=== PATIENT | female | born 1960 | race Caucasian/White ===

== ENCOUNTER 2024-10-10 04:24 | Emergency (ER) | payer SELFPAY ==
[2024-10-10] VITALS (22 sets, daily range): BP systolic 104–212; BP diastolic 58–94; PULSE 55–81; RESP 15–24; TEMP 36.6–36.8; O2SAT 95–100
--- NOTE | ~2024-10-10 | CT_ITS ---
Clinical Indication: Back pain, elevated d-dimer CT Scan of the Chest with Contrast: Technique: Contiguous sections were acquired throughout the chest after intravenous administration of 100 cc of Omnipaque 350. Dose reduction technique was used on this scan by utilizing automated expos ure control and iterative reconstruction technique. The dose-length product (DLP) was 142.28 mGy-cm. Findings: There is no evidence of any significant mediastinal, hilar or axillary lymphadenopathy. There is no f illing defect in the pulmonary arterial tree to suggest pulmonary embolus. Ascending aorta measures 4 .2 cm in diameter. There is no evidence of pleural or pericardial effusion. There is mild emphysema with biapical scarring. Images through the upper abdomen reveal no abnormalities. Impression: No pulmonary embolus. Ascending aorta measures 4.2 cm in diameter. Mild emphysema with biapical scarring. Reviewed, dictated and finalized at [facility]. Impression: No pulmonary embolus. Ascending aorta measures 4.2 cm in diameter. Mild emphysema with biapical scarring.
--- NOTE | ~2024-10-10 | XR_ITS ---
Portable chest x-ray Comparison: None Clinical History: Chest pain Findings: Lungs are clear, without focal consolidation or pleural effusion. Cardiomediastinal silho uette is unremarkable. Bones and soft tissues are unremarkable. Impression: Clear lungs. Reviewed, dictated and finalized at location [facility]. Impression: Clear lungs.
--- NOTE | 2024-10-10 04:27 | ECG_ITS ---
Test Date: 2024-10-10 04:32:54 Measurements Intervals [place] Rate: 56 P: 68 ND: 144 QRS: 15 QRSD: 95 T: 58 QT: 396 QTc: 385 Interpretive Statements SINUS BRADYCARDIA WITH SINUS ARRHYTHMIA POSSIBLE LEFT ATRIAL ENLARGEMENT [-0.1mV P-WAVE IN V1/V2] INCOMPLETE RIGHT BUNDLE BRANCH BLOCK [90+ ms QRS DURATION, TERMINAL R IN V1/V2, 40+ ms S IN I/aVL/V4/V5/V6] BORDERLINE ECG No previous ECG available for comparison Electronically Signed On 10-11-2024 07:58:14 CDT by Paco Anderson M.D.
--- OUTSIDE RECORDS SUMMARY | 2024-10-10 04:27 | XMS_ITS | Clinical Summary ---
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 Gender Identity Not on file Sexual Orientation Not on file Plan of Treatment Health Maintenance Due Date Last Done Comments Cervical Cancer Screening Pa p Smear (Age 30 to 64) Every 3 Years 1961 Colorectal Cancer Screening Colonoscopy (10 Years) 1961 Annual Physical 1964 Hepatitis C 11/21/1979 DTaP, Tdap and Td Vaccines ( 1 - Tdap) 1980 Cervical Cancer Screening Pa p with HPV Testing (Age 30 to 64) Every 5 Years 11/21/1991 Cervical Cancer Screening with HPV 11/21/1991 Mammogram Screening 2001 Pneumococcal Vaccine: 50+ Ye ars (1 of 1 - PCV) 11/21/2011 Zoster Vaccines (1 of 2) 11/21/2011 COVID-19 Vaccine (2023-2 5 season) 2023 RSV Immunization or 60+ Years (1 - 1-dose 75+ series) 2036 Meningococcal B Vaccine Aged Out No l onger eligible based on patient's age to complete this topic Meningococcal Vaccine Aged Out No samy lisa eligible based on patient's age to complete this topic RSV Immunizations Under 20 Months Aged Out No longer eligible based on patient's age to complete this topic
[2024-10-10] MEDS: ASPIRIN 81 MG CHEWABLE TABLET 324 MG PO (04:54)
[2024-10-10 04:55] LABS: Hematocrit 40.2 % (35.0-49.0); Hemoglobin 13.6 g/dL (12.0-15.0); Immature Granulocyte Percent A 0.4 % (0.0-0.0); Lymphocytes Absolute Auto 1.18 K/mm3 (1.10-4.50); Mean Corpuscular HGB Conc 33.8 g/dL (32-36); Mean Corpuscular Hemoglobin 33.7 pg (27.0-31.0); Mean Corpuscular Volume 99.8 fL (78.0-102.0); Nucleated Red Blood Cells Absolute Auto 0.00 K/mm3 (0.00-0.00); Nucleated Red Blood Cells Perc 0.0 % (0-0.0); Platelet Count Result 252 K/mm3 (150-420); Red Blood Count 4.03 M/mm3 (4.20-5.40); White Blood Count 5.3 K/mm3 (4.8-10.8)
[2024-10-10] MEDS: SODIUM CHLORIDE 0.9% IV 1,000 ML 999 ML IV CONT ×2 (04:55→06:02)
--- OUTSIDE RECORDS SUMMARY | 2024-10-10 05:04 | XMS_ITS | Clinical Summary ---
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
[2024-10-10 05:07] LABS: Alanine Aminotransferase 14 U/L (6-35); Albumin Level 4.1 g/dL (3.5-5.1); Alkaline Phosphatase 113 U/L (38-126); Anion Gap 5 mmol/L (4-12); Aspartate Amino Transferase 24 U/L (14-36); Bilirubin,Total 0.4 mg/dL (0.2-1.3); Blood Urea Nitrogen 14 mg/dL (7-17); Calcium 8.5 mg/dL (8.4-10.2); Carbon Dioxide 23 mmol/L (22-30); Chloride 109 mmol/L (98-107); Estimated CRCL calculation 46 ml/min; Estimated Glomerular Filt Rate > 60; Glucose 92 mg/dL (65-110); Lipase 108 U/L (23-300); Osmolality Calculated 284 mOsm/kg (285-295); Sodium 137 mmol/L (137-145); Total Protein 6.9 g/dL (6.3-8.2)
[2024-10-10 05:09] LABS: INR 0.9; Partial Thromboplastin Time 23.6 Sec (23.9-30.70); Prothrombin Time 10.4 Seconds (9.50-12.1)
[2024-10-10 05:18] LABS: NT Pro B Type Natriuretic Pept 144 pg/mL (19.9-100); Potassium 2.8 mmol/L (3.4-5.0); Troponin I < 0.012 ng/mL (0.000-0.034)
[2024-10-10 05:24] LABS: Add Urine Microscopic? NO; Appearance Urine Clear (Clear); Glucose Urine UA Negative (Negative); Leukocyte Esterase Ur Negative LEU/UL (Negative); Nitrate Urine Negative (Negative); Specific Grav Ur <= 1.005 (1.010-1.020)
[2024-10-10] MEDS: POTASSIUM BICARBONATE 25 MEQ TABEF 50 MEQ PO ×2 (05:33→07:54)
--- NOTE | 2024-10-10 05:53 | ED.CHESTPAIN ---
HPI - Chest Pain General Chief Complaint: Chest Pain <Paco Arizmendi MD - Last Filed: 10/10/24 05:59> Stated Complaint: tingling all over <Paco Arizmendi MD - Last Filed: 10/10/24 05:59> Time Seen by Provider: 10/10/24 04:33 <Paco Arizmendi MD - Last Filed: 10/10/24 05:59> Source: patient <Paco Arizmendi MD - Last Filed: 10/10/24 05:59> Mode of arrival: ambulatory <Paco Arizmendi MD - Last Filed: 10/10/24 05:59> Limitations: no limitations <Paco Arizmendi MD - Last Filed: 10/10/24 05:59> History of Present Illness HPI narrative: this is a 63-year-old female with no significant past medical history presents after she woke up this morning around 3:00 a.m. with chest heaviness with no dyspnea no shortness of breath mild nausea with no vomiting no fever chills no chest congestion no abdominal pain no flank pain no dysuria or hematuria no diarrhea constipation. Rates her pain 4/10 with no radiation of her pain <Paco Arizmendi MD - Last Filed: 10/10/24 05:59> MD complaint: chest heaviness <Paco Arizmendi MD - Last Filed: 10/10/24 05:59> Onset (ago): hour(s) <Paco Arizmendi MD - Last Filed: 10/10/24 05:59> Timing of current episode: constant <Paco Arizmendi MD - Last Filed: 10/10/24 05:59> Prior episodes: No <Paco Arizmendi MD - Last Filed: 10/10/24 05:59> Onset: during rest <Paco Arizmendi MD - Last Filed: 10/10/24 05:59> Pain location: substernal <Paco Arizmendi MD - Last Filed: 10/10/24 05:59> Pain radiation: none <Paco Arizmendi MD - Last Filed: 10/10/24 05:59> Severity: mild <Paco Arizmendi MD - Last Filed: 10/10/24 05:59> Related Data Allergies/Adverse Reactions: Allergies Allergy/AdvReac Type Severity Reaction Status Date / Time No Known Allergies Allergy Mild Unverified 01/16/05 11:42 <Paco Arizmendi MD - Last Filed: 10/10/24 05:59> Review of Systems Review of Systems: All systems reviewed & are unremarkable except as noted in HPI and below <Paco Arizmendi MD - Last Filed: 10/10/24 05:59> Exam Const: General: cooperative, healthy appearing, comfortable, no acute distress and well developed <Paco Arizmendi MD - Last Filed: 10/10/24 05:59> Chest: Chest palpation & inspection: normal inspection of the chest and normal palpation of entire chest wall <Paco Arizmendi MD - Last Filed: 10/10/24 05:59> Resp: Effort & Inspection: normal respiratory effort and able to speak in complete sentences <Paco Arizmendi MD - Last Filed: 10/10/24 05:59> Auscultation: clear to auscultation bilaterally <Paco Arizmendi MD - Last Filed: 10/10/24 05:59> Cardio: Jugular venous distension: no JVD <Paco Arizmendi MD - Last Filed: 10/10/24 05:59> Palpation: normal PMI <Paco Arizmendi MD - Last Filed: 10/10/24 05:59> Rate: regular rate <Paco Arizmendi MD - Last Filed: 10/10/24 05:59> Rhythm: regular rhythm <Paco Arizmendi MD - Last Filed: 10/10/24 05:59> Heart sounds: S1 normal heart sound present and S2 normal heart sound present <Paco Arizmendi MD - Last Filed: 10/10/24 05:59> : General: Yes bimanual renal exam normal bilaterally <Paco Arizmendi MD - Last Filed: 10/10/24 05:59> Urinary Catheter: Urinary Catheter: patent and draining <Paco Arizmendi MD - Last Filed: 10/10/24 05:59> Back/Spine/Pelvis: Back: no CVA tenderness <Paco Arizmendi MD - Last Filed: 10/10/24 05:59> Skin: General skin exam: normal color and no rashes or lesions noted <Paco Arizmendi MD - Last Filed: 10/10/24 05:59> Neuro: General: oriented to person, oriented to place, oriented to time and patient oriented x3 <Paco Arizmendi MD - Last Filed: 10/10/24 05:59> Extrem: General: normal to inspection, full ROM and capillary refill normal <Paco Arizmendi MD - Last Filed: 10/10/24 05:59> Psych: Appearance: grossly normal <Paco Arizmendi MD - Last Filed: 10/10/24 05:59> Course Vital Signs Vital signs: Vital Signs Temperature 36.6 C 10/10/24 04:25 Pulse Rate 75 10/10/24 04:25 Respiratory Rate 24 H 10/10/24 04:25 Blood Pressure 156/90 H 10/10/24 04:25 Pulse Oximetry 97 10/10/24 04:25 Oxygen Delivery Room Air 10/10/24 04:25 Temperature 36.6 C 10/10/24 07:15 Pulse Rate 58 L 10/10/24 08:01 Respiratory Rate 17 10/10/24 08:01 Blood Pressure 104/90 10/10/24 08:01 Pulse Oximetry 99 10/10/24 08:01 Oxygen Delivery Room Air 10/10/24 06:28 <Paco Arizmendi MD - Last Filed: 10/10/24 05:59> Vital Signs Temperature 36.6 C 10/10/24 04:25 Pulse Rate 75 10/10/24 04:25 Respiratory Rate 24 H 10/10/24 04:25 Blood Pressure 156/90 H 10/10/24 04:25 Pulse Oximetry 97 10/10/24 04:25 Oxygen Delivery Room Air 10/10/24 04:25 Temperature 36.6 C 10/10/24 07:15 Pulse Rate 58 L 10/10/24 08:01 Respiratory Rate 17 10/10/24 08:01 Blood Pressure 104/90 10/10/24 08:01 Pulse Oximetry 99 10/10/24 08:01 Oxygen Delivery Room Air 10/10/24 06:28 <Pavel Roberts MD - Last Filed: 10/10/24 08:33> MDM - Chest Pain MDM Narrative Medical decision making narrative: Patient was placed in Room #2 History and physical was performed. received patient from Dr. Dr. Paco Arizmendi potassium 2.8 to her pending 2nd troponin 1st [address] a chest showed a 4.2 cm aneurysm no pulmonary embolism. Patient is receiving a K rider in and has received 50 mEq of potassium p.o. and 3 and 25 mg aspirin. magnesium 1.6 low normal, will give Mag-Ox 400 mg Second troponin is normal patient only she woke up 3:00 a.m. with pain between her shoulder blades in the back tingling all over was little nausea without any diaphoresis or vomiting. Denies any chest pain or difficulty breathing. Independent Historian: Patient External Source Review: Differential Dx includes but not limited to: acute coronary syndrome pneumonia pulmonary embolism aortic dissection uric aneurysm Medications were Reviewed: no home meds Independently Interpreted by me: labs independently interpreted by me. Meds, treatment, ED course: potassium p.o. 500 mEq x2, K rider Mag-Ox 400. Social Situation Impacting Patients Care: Shared decision Making: evaluation was discussed all questions were asked and answered patient agreed with the plan. She would follow up with her primary care provider tomorrow she already has an appointment scheduled for 4:00 p.m. she needs follow-up for her potassium and also to follow her for her 4.2 cm aortic aneurysm Discussed with Dr. Paco Arizmendi At change of shift DISCHARGE DIAGNOSIS: Back pain, 4.2 cm aortic aneurysm, hypokalemia DISPOSITION: Discharge home CONDITION AT DISCHARGE: stable <Pavel Roberts MD - Last Filed: 10/10/24 08:33> Lab Data Result diagrams: 10/10/24 04:55 10/10/24 04:55 <Paco Arizmendi MD - Last Filed: 10/10/24 05:59> Labs: Lab Results 10/10/24 10/10/24 10/10/24 Range/Units 04:46 04:46 04:55 WBC 5.3 (4.8-10.8) K/mm3 RBC 4.03 L (4.20-5.40) M/mm3 Hgb 13.6 (12.0-15.0) g/dL Hct 40.2 (35.0-49.0) % MCV 99.8 (78.0-102.0) fL MCH 33.7 H (27.0-31.0) pg MCHC 33.8 (32-36) g/dL RDW 14.3 (11.6-14.4) % Plt Count 252 (150-420) K/mm3 MPV 9.8 (9.2-11.8) fl Immature Gran % (Auto) 0.4 H (0.0-0.0) % Neut % (Auto) 69.3 (50.0-70.0) % Lymph % (Auto) 22.2 (18.0-42.0) % [place] % (Auto) 4.9 (2.0-11.0) % Eos % (Auto) 2.8 (1.0-6.0) % Baso % (Auto) 0.4 (0.0-1.0) % Lymph # (Auto) 1.18 (1.10-4.50) K/mm3 [place] # (Auto) 0.26 (0.10-0.90) K/mm3 Eos # (Auto) 0.15 (0.02-0.50) K/mm3 Baso # (Auto) 0.02 (0.00-0.10) K/mm3 Abs Immat Gran (auto) 0.02 H (0.00-0.00) K/mm3 Absolute Neuts (auto) 3.69 (1.70-7.20) K/mm3 Absolute Nucleated RBC 0.00 (0.00-0.00) K/mm3 Nucleated RBC % 0.0 (0-0.0) % PT 10.4 (9.50-12.1) Seconds INR 0.9 APTT 23.6 L (23.9-30.70) Sec D-Dimer 0.90 H (0.19-0.50) mg/L Sodium 137 (137-145) mmol/L Potassium 2.8 L* (3.4-5.0) mmol/L Chloride 109 H (98-107) mmol/L Carbon Dioxide 23 (22-30) mmol/L Anion Gap 5 (4-12) mmol/L BUN 14 (7-17) mg/dL Creatinine 0.93 (0.7-1.0) mg/dL Estim Creat Clear Calc 46 ml/min Estimated GFR > 60 (59 - ) Glucose 92 (65-110) mg/dL Calculated Osmolality 284 L (285-295) mOsm/kg Calcium 8.5 (8.4-10.2) mg/dL Magnesium Cancelled 1.6 Total Bilirubin 0.4 (0.2-1.3) mg/dL AST 24 (14-36) U/L ALT 14 (6-35) U/L Alkaline Phosphatase 113 (38-126) U/L Troponin I < 0.012 (0.000-0.034) ng/mL NT-Pro-B Natriuret Pep 144 H (19.9-100) pg/mL Total Protein 6.9 (6.3-8.2) g/dL Albumin 4.1 (3.5-5.1) g/dL Lipase 108 (23-300) U/L Urine Color (Yellow) Urine Appearance (Clear) Urine pH (5.0-8.0) Ur Specific [place] (1.010-1.020) Urine Protein (Negative) Urine Glucose (UA) (Negative) Urine Ketones (Negative) Ur Blood (Man) (Negative) Urine Nitrate (Negative) Urine Bilirubin (Negative) Urine Urobilinogen (0.2-1.0) mg/dL Leukocyte Esterase Rfl (Negative) [place]/UL 10/10/24 10/10/24 Range/Units 05:21 07:42 WBC (4.8-10.8) K/mm3 RBC (4.20-5.40) M/mm3 Hgb (12.0-15.0) g/dL Hct (35.0-49.0) % MCV (78.0-102.0) fL MCH (27.0-31.0) pg MCHC (32-36) g/dL RDW (11.6-14.4) % Plt Count (150-420) K/mm3 MPV (9.2-11.8) fl Immature Gran % (Auto) (0.0-0.0) % Neut % (Auto) (50.0-70.0) % Lymph % (Auto) (18.0-42.0) % [place] % (Auto) (2.0-11.0) % Eos % (Auto) (1.0-6.0) % Baso % (Auto) (0.0-1.0) % Lymph # (Auto) (1.10-4.50) K/mm3 [place] # (Auto) (0.10-0.90) K/mm3 Eos # (Auto) (0.02-0.50) K/mm3 Baso # (Auto) (0.00-0.10) K/mm3 Abs Immat Gran (auto) (0.00-0.00) K/mm3 Absolute Neuts (auto) (1.70-7.20) K/mm3 Absolute Nucleated RBC (0.00-0.00) K/mm3 Nucleated RBC % (0-0.0) % PT (9.50-12.1) Seconds INR APTT (23.9-30.70) Sec D-Dimer (0.19-0.50) mg/L Sodium (137-145) mmol/L Potassium (3.4-5.0) mmol/L Chloride (98-107) mmol/L Carbon Dioxide (22-30) mmol/L Anion Gap (4-12) mmol/L BUN (7-17) mg/dL Creatinine (0.7-1.0) mg/dL Estim Creat Clear Calc ml/min Estimated GFR (59 - ) Glucose (65-110) mg/dL Calculated Osmolality (285-295) mOsm/kg Calcium (8.4-10.2) mg/dL Magnesium Total Bilirubin (0.2-1.3) mg/dL AST (14-36) U/L ALT (6-35) U/L Alkaline Phosphatase (38-126) U/L Troponin I < 0.012 (0.000-0.034) ng/mL NT-Pro-B Natriuret Pep (19.9-100) pg/mL Total Protein (6.3-8.2) g/dL Albumin (3.5-5.1) g/dL Lipase (23-300) U/L Urine Color Light yellow (Yellow) Urine Appearance Clear (Clear) Urine pH 6.0 (5.0-8.0) Ur Specific [place] <= 1.005 L (1.010-1.020) Urine Protein Negative (Negative) Urine Glucose (UA) Negative (Negative) Urine Ketones Negative (Negative) Ur Blood (Man) Trace-intact H (Negative) Urine Nitrate Negative (Negative) Urine Bilirubin Negative (Negative) Urine Urobilinogen 0.2 (0.2-1.0) mg/dL Leukocyte Esterase Rfl Negative (Negative) [place]/UL <Paco Arizmendi MD - Last Filed: 10/10/24 05:59> Lab Results 10/10/24 10/10/24 10/10/24 Range/Units 04:46 04:46 04:55 WBC 5.3 (4.8-10.8) K/mm3 RBC 4.03 L (4.20-5.40) M/mm3 Hgb 13.6 (12.0-15.0) g/dL Hct 40.2 (35.0-49.0) % MCV 99.8 (78.0-102.0) fL MCH 33.7 H (27.0-31.0) pg MCHC 33.8 (32-36) g/dL RDW 14.3 (11.6-14.4) % Plt Count 252 (150-420) K/mm3 MPV 9.8 (9.2-11.8) fl Immature Gran % (Auto) 0.4 H (0.0-0.0) % Neut % (Auto) 69.3 (50.0-70.0) % Lymph % (Auto) 22.2 (18.0-42.0) % [place] % (Auto) 4.9 (2.0-11.0) % Eos % (Auto) 2.8 (1.0-6.0) % Baso % (Auto) 0.4 (0.0-1.0) % Lymph # (Auto) 1.18 (1.10-4.50) K/mm3 [place] # (Auto) 0.26 (0.10-0.90) K/mm3 Eos # (Auto) 0.15 (0.02-0.50) K/mm3 Baso # (Auto) 0.02 (0.00-0.10) K/mm3 Abs Immat Gran (auto) 0.02 H (0.00-0.00) K/mm3 Absolute Neuts (auto) 3.69 (1.70-7.20) K/mm3 Absolute Nucleated RBC 0.00 (0.00-0.00) K/mm3 Nucleated RBC % 0.0 (0-0.0) % PT 10.4 (9.50-12.1) Seconds INR 0.9 APTT 23.6 L (23.9-30.70) Sec D-Dimer 0.90 H (0.19-0.50) mg/L Sodium 137 (137-145) mmol/L Potassium 2.8 L* (3.4-5.0) mmol/L Chloride 109 H (98-107) mmol/L Carbon Dioxide 23 (22-30) mmol/L Anion Gap 5 (4-12) mmol/L BUN 14 (7-17) mg/dL Creatinine 0.93 (0.7-1.0) mg/dL Estim Creat Clear Calc 46 ml/min Estimated GFR > 60 (59 - ) Glucose 92 (65-110) mg/dL Calculated Osmolality 284 L (285-295) mOsm/kg Calcium 8.5 (8.4-10.2) mg/dL Magnesium Cancelled 1.6 Total Bilirubin 0.4 (0.2-1.3) mg/dL AST 24 (14-36) U/L ALT 14 (6-35) U/L Alkaline Phosphatase 113 (38-126) U/L Troponin I < 0.012 (0.000-0.034) ng/mL NT-Pro-B Natriuret Pep 144 H (19.9-100) pg/mL Total Protein 6.9 (6.3-8.2) g/dL Albumin 4.1 (3.5-5.1) g/dL Lipase 108 (23-300) U/L Urine Color (Yellow) Urine Appearance (Clear) Urine pH (5.0-8.0) Ur Specific [place] (1.010-1.020) Urine Protein (Negative) Urine Glucose (UA) (Negative) Urine Ketones (Negative) Ur Blood (Man) (Negative) Urine Nitrate (Negative) Urine Bilirubin (Negative) Urine Urobilinogen (0.2-1.0) mg/dL Leukocyte Esterase Rfl (Negative) [place]/UL 10/10/24 10/10/24 Range/Units 05:21 07:42 WBC (4.8-10.8) K/mm3 RBC (4.20-5.40) M/mm3 Hgb (12.0-15.0) g/dL Hct (35.0-49.0) % MCV (78.0-102.0) fL MCH (27.0-31.0) pg MCHC (32-36) g/dL RDW (11.6-14.4) % Plt Count (150-420) K/mm3 MPV (9.2-11.8) fl Immature Gran % (Auto) (0.0-0.0) % Neut % (Auto) (50.0-70.0) % Lymph % (Auto) (18.0-42.0) % [place] % (Auto) (2.0-11.0) % Eos % (Auto) (1.0-6.0) % Baso % (Auto) (0.0-1.0) % Lymph # (Auto) (1.10-4.50) K/mm3 [place] # (Auto) (0.10-0.90) K/mm3 Eos # (Auto) (0.02-0.50) K/mm3 Baso # (Auto) (0.00-0.10) K/mm3 Abs Immat Gran (auto) (0.00-0.00) K/mm3 Absolute Neuts (auto) (1.70-7.20) K/mm3 Absolute Nucleated RBC (0.00-0.00) K/mm3 Nucleated RBC % (0-0.0) % PT (9.50-12.1) Seconds INR APTT (23.9-30.70) Sec D-Dimer (0.19-0.50) mg/L Sodium (137-145) mmol/L Potassium (3.4-5.0) mmol/L Chloride (98-107) mmol/L Carbon Dioxide (22-30) mmol/L Anion Gap (4-12) mmol/L BUN (7-17) mg/dL Creatinine (0.7-1.0) mg/dL Estim Creat Clear Calc ml/min Estimated GFR (59 - ) Glucose (65-110) mg/dL Calculated Osmolality (285-295) mOsm/kg Calcium (8.4-10.2) mg/dL Magnesium Total Bilirubin (0.2-1.3) mg/dL AST (14-36) U/L ALT (6-35) U/L Alkaline Phosphatase (38-126) U/L Troponin I < 0.012 (0.000-0.034) ng/mL NT-Pro-B Natriuret Pep (19.9-100) pg/mL Total Protein (6.3-8.2) g/dL Albumin (3.5-5.1) g/dL Lipase (23-300) U/L Urine Color Light yellow (Yellow) Urine Appearance Clear (Clear) Urine pH 6.0 (5.0-8.0) Ur Specific [place] <= 1.005 L (1.010-1.020) Urine Protein Negative (Negative) Urine Glucose (UA) Negative (Negative) Urine Ketones Negative (Negative) Ur Blood (Man) Trace-intact H (Negative) Urine Nitrate Negative (Negative) Urine Bilirubin Negative (Negative) Urine Urobilinogen 0.2 (0.2-1.0) mg/dL Leukocyte Esterase Rfl Negative (Negative) [place]/UL <Pavel Roberts MD - Last Filed: 10/10/24 08:33> Critical Care Time Critical Care Time Critical Care Time: No <Paco Arizmendi MD - Last Filed: 10/10/24 05:59> Discharge Plan Discharge Clinical Impression: Acute hypokalemia Back pain Qualifiers: Back pain location: thoracic back pain Chronicity: acute Back pain laterality: midline Qualified Code(s): M54.6 - Pain in thoracic spine Aortic aneurysm Qualifiers: Aortic location: thoracic aorta Thoracic aorta location: ascending aorta Presence of rupture: without rupture Qualified Code(s): I71.21 - Aneurysm of the ascending aorta, without rupture <Paco Arizmendi MD - Last Filed: 10/10/24 05:59> Patient Disposition: Home <Paco Arizmendi MD - Last Filed: 10/10/24 05:59> Condition: Stable <Paco Arizmendi MD - Last Filed: 10/10/24 05:59> Instructions: Antibiotic Form, Hypokalemia (ED), Thoracic Aortic Aneurysm (DC), Back Pain (ED) <Paco Arizmendi MD - Last Filed: 10/10/24 05:59> Additional Instructions: follow-up with primary care provider tomorrow to recheck her potassium and discuss surveillance severe aortic aneurysm that is 4.2 cm. To discuss further evaluation treatment. Return if you get worse or develops any new symptoms. <Paco Arizmendi MD - Last Filed: 10/10/24 05:59> Patient Language: Belarusian <Paco Arizmendi MD - Last Filed: 10/10/24 05:59> Prescriptions: New potassium chloride 20 mEq tablet,ER particles/crystals 20 meq PO BID Qty: 14 0RF magnesium aspart,citrate,oxide 400 mg magnesium capsule 400 mg PO . b.i.d. Qty: 14 0RF <Paco Arizmendi MD - Last Filed: 10/10/24 05:59> Follow-up/Referrals: UNKNOWN,DOCTOR [Primary Care Provider] - <Paco Arizmendi MD - Last Filed: 10/10/24 05:59> Time of Disposition: 08:27 <Paco Arizmendi MD - Last Filed: 10/10/24 05:59> 08:27 <Pavel Robrets MD - Last Filed: 10/10/24 08:33>
--- NOTE | 2024-10-10 06:00 | PC.NURSE ---
Pt resting, awaiting CTA report, continuing to monitor, VSS. Friend at bedside.
[2024-10-10] MEDS: KCL 20 MEQ/SW 100 ML 100 ML 50 MEQ IVPB (06:01)
[2024-10-10] MEDS: MAG HYDROX/ALUMINUM HYD/SIMETH 30 ML, PHENobarb/HYOSCY/ATROPINE/SCOP 32.4 MG, LIDOCAINE... PO (06:06)
--- NOTE | 2024-10-10 06:53 | PC.NURSE ---
Pt resting, VSS, Report given to LUKE De La Vega
[2024-10-10 07:28] LABS: Magnesium 1.6 mg/dL (1.6-2.3)
[2024-10-10] MEDS: MAGNESIUM OXIDE 400 MG TABLET PO (07:54)
[2024-10-10 08:11] LABS: Troponin I < 0.012 ng/mL (0.000-0.034)
== END 2024-10-10 08:50 | disposition home or self-care (01) ==
PROVIDERS: Emergency Medicine; Emergency Provider Emergency Medicine
DX: I71.21 Aneurysm of the ascending aorta, without rupture (principal); E87.6 Hypokalemia; M54.6 Pain in thoracic spine
CPT/HCPCS: 36415; 71045; 71275; 80053; 81003; 83690; 83735; 83880; 84484; 85025; 85380; 85610; 85730; 93005; 96361; 96365; 96366; 99284; A9270; J3480; J7030; Q9967

== ENCOUNTER 2024-12-13 07:40 | Emergency (ER) | payer SELFPAY ==
[2024-12-13] VITALS (15 sets, daily range): BP systolic 102–154; BP diastolic 62–92; PULSE 60–75; RESP 16–18; TEMP 36.6; O2SAT 96–100
--- NOTE | 2024-12-13 07:44 | ED_ITS ---
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 No nausea /vomiting. No photophobia phonophobia. -- Lightheadedness -- generalized tingling all over her body no chest pain or shortness of breath no focal neuro deficit no fever or chills no upper respiratory symptoms. she continues to have these symptoms. MD complaint: felt faint Onset (ago): hour(s) ( 1 hour ago) Prodromal symptoms: headache and lightheaded Witnessed: No Context: at rest Injuries sustained associated with event: none Current symptoms: lightheaded and other ( Generalized numbness all over her body) History: previous syncopal episode Treatments prior to arrival: none Related Data Home Medications ?Medication ?Instructions ?Recorded ?Confirmed ?Last Taken ?Type No Home Medications 12/13/24 12/13/24 U nknown History Allergies Allergy/AdvReac Type Severity Reaction Status Date / Time No Known Allergies Allergy Mild Verified 12/13/24 07:43 Review of Systems 2 Review of Systems: All systems reviewed & are unremarkable except as noted in HPI and below Constitutional: Constitutional: Reports as per HPI, Reports no additional constitutional complaints and Reports weakness Eyes: Eyes: Reports as per HPI and Reports no additional eye complaints ENT: Reports system reviewed and no additional complaints, except as documented and Reports as per HPI Cardiovascular: Cardiovascular: Reports as per HPI and Reports no additional cardiovascular complaints Respiratory: Respiratory: Reports as per HPI and Reports no additional respiratory complaints Gastrointestinal: Gastrointestinal: Reports as per HPI, Reports no additional gastrointestinal complaints and Reports nausea Genitourinary: Genitourinary: Reports no additional female genitourinary complaints and Reports as per HPI Musculoskeletal: Musculoskeletal: Reports no additional musculoskeletal complaints and Reports as per HPI Integumentary/Breasts: Skin/Breast: Reports system reviewed and no additional complaints, except as docu and Reports as per HPI Neurologic: Reports system reviewed and no additional complaints, except as documented, Reports as per HPI and Reports numbness ( verbalize numbness all over the body) Psychiatric: Psychiatric: Reports no additional psychiatric complaints and Reports as per HPI Endocrine: Endocrine: Reports no additional endocrine complaints and Reports as per HPI Hematologic/Lymphatic: Hematologic/Lymphatic: Reports no additional hematologic/lymphatic complaints and Reports as per HPI [facility] Past Medical History Medical History (Updated 12/13/24 @ 09:04 by Amish Cordero MD) Colon perforation Ascending aortic aneurysm Cervical cancer Social History Social History (Updated 12/13/24 @ 08:01 by Amish Cordero MD) Social History: uses marijuana Exam 2 Narrative: not orthostatic. Heart rate of 70 Oxygen saturation of 99% on room air with a respiratory rate of 16. Const: General: no acute distress Orientation/consciousness: patient oriented x3 Limitations: no limitations HENMT: Head: normal to inspection Ears: external ears normal F miranda/Nose/Sinus: Normal external nose present Face and sinus: normal facial exam Mouth: Yes Normal oral and palatal mucosa present Throat: posterior oropharynx normal Eyes: Conjunctivae: conjunctivae normal Pupils: Equal, round and reactive pupils present EOM: EOMs intact bilaterally Direct Ophthalmoscopy: no photophobia Neck: Neck: normal visual inspection, no lymphadenopathy and no meningeal signs Chest: Chest palpation & inspection: normal inspection of the chest Resp: Effort & Inspection: normal respiratory effort Auscultation: clear to auscultation bilaterally Cardio: Rate: regular rate Rhythm: regular rhythm GI: Auscultation: normal bowel sounds Other: no tenderness / rigidity / rebound. : General: Yes no CVA tenderness Urinary Catheter: Urinary Catheter: patent and draining Back/Spine/Pelvis: Back: no CVA tenderness Cervical Spine: collar present Skin: General skin exam: normal color Rashes: no rashes Wounds: no wounds Neuro: General: patient oriented x3, moves all extremities, no meningeal signs, no focal motor deficits and CN's II-XI intact bilaterally Cranial nerves: Yes Nystagmus not present Speech: normal speech Gait exam (Neuro): Normal gait present Extrem: General: normal to inspection and no clubbing, cyanosis or edema Psych: Mental Status: mental status grossly normal Affect: normal affect Attitude: cooperative Course Course Emergency Course: Syncope anxiety macrocytic anemia patient has a positive UA does not have any symptoms Vital Signs Vital signs: Vital Signs Pulse Rate 60 12/13/24 07:43 Pulse Oximetry 98 12/13/24 07:43 Temperature 36.6 C 12/13/24 07:44 Pulse Rate 63 12/13/24 08:01 Respiratory Rate 16 12/13/24 07:44 Blood Pressure 122/62 12/13/24 08:31 Pulse Oximetry 100 12/13/24 08:45 Oxygen Delivery Room Air 12/13/24 07:44 MDM - Syncope MDM Narrative Medical decision making narrative: syncope anxiety Medical Records Attestation: I reviewed the patient's medical records. Lab Data Attestation: I reviewed the patient's lab results. 12/13/24 08:04 12/13/24 08:04 Labs: Lab Results 12/13/24 12/13/24 Range/Units 08:04 08:11 WBC 5.4 (4.8-10.8) K/mm3 RBC 3.45 L (4.20-5.40) M/mm3 Hgb 11.8 L (12.0-15.0) g/dL Hct 35.8 (35.0-49.0) % MCV 103.8 H (78.0-102.0) fL MCH 34.2 H (27.0-31.0) pg MCHC 33.0 (32-36) g/dL RDW 14.5 H (11.6-14.4) % Plt Count 218 (150-420) K/mm3 MPV 9.7 (9.2-11.8) fl Immature Gran % (Auto) 0.4 H (0.0-0.0) % Neut % (Auto) 69.6 (50.0-70.0) % Lymph % (Auto) 20.1 (18.0-42.0) % Stearns % (Auto) 6.5 (2.0-11.0) % Eos % (Auto) 2.8 (1.0-6.0) % Baso % (Auto) 0.6 (0.0-1.0) % Lymph # (Auto) 1.08 L (1.10-4.50) K/mm3 Stearns # (Auto) 0.35 (0.10-0.90) K/mm3 Eos # (Auto) 0.15 (0.02-0.50) K/mm3 Baso # (Auto) 0.03 (0.00-0.10) K/mm3 Abs Immat Gran (auto) 0.02 H (0.00-0.00) K/mm3 Absolute Neuts (auto) 3.74 (1.70-7.20) K/mm3 Absolute Nucleated RBC 0.00 (0.00-0.00) K/mm3 Nucleated RBC % 0.0 (0-0.0) % PT 10.9 (9.50-12.1) Seconds INR 1.0 Sodium 142 (137-145) mmol/L Potassium 3.4 (3.4-5.0) mmol/L Chloride 108 H (98-107) mmol/L Carbon Dioxide 26 (22-30) mmol/L Anion Gap 8 (4-12) mmol/L BUN 12 (7-17) mg/dL Creatinine 0.90 (0.7-1.0) mg/dL Estim Creat Clear Calc 48 ml/min Estimated GFR > 60 (59 - ) Glucose 77 (65-110) mg/dL Calculated Osmolality 292 (285-295) mOsm/kg Lactic Acid 1.1 (0.4-2.0) mmol/L Calcium 8.9 (8.4-10.2) mg/dL Magnesium 1.7 (1.6-2.3) mg/dL Total Bilirubin 0.6 (0.2-1.3) mg/dL AST 23 (14-36) U/L ALT 12 (6-35) U/L Alkaline Phosphatase 93 (38-126) U/L Total Creatine Kinase 89 (30-135) U/L Troponin I < 0.012 (0.000-0.034) ng/mL NT-Pro-B Natriuret Pep 312 H (19.9-100) pg/mL Total Protein 6.3 (6.3-8.2) g/dL Albumin 3.9 (3.5-5.1) g/dL Lipase 79 (23-300) U/L TSH 1.000 (0.465-4.680) uIU/mL Urine Color Light yellow (Yellow) Urine Appearance Clear (Clear) Urine pH 6.0 (5.0-8.0) Ur Specific Freeborn 1.020 (1.010-1.020) Urine Protein Negative (Negative) Urine Glucose (UA) Negative (Negative) Urine Ketones Negative (Negative) Ur Blood (Man) Trace-intact H (Negative) Urine Nitrate Negative (Negative) Urine Bilirubin Negative (Negative) Urine Urobilinogen 0.2 (0.2-1.0) mg/dL Leukocyte Esterase Rfl 1+ H (Negative) [place]/UL Urine RBC 0-2 (0-2) /hpf Urine WBC 4-6 H (0-3) /hpf Ur Squamous Epith Cells Few (Few) /hpf Urine Bacteria Trace (None) /hpf ECG Data EKG #1: ECG completion date: 12/13/24 ECG completion time: 08:04 Interpretation: Normal sinus rhythm. Normal axis. No ST elevation. This EKG is similar to an EKG done on 10/10/2024. Discharge Plan Discharge Clinical Impression: Syncope, Anxiety Patient Disposition: Home Condition: Stable Instructions: Antibiotic Form, Syncope (ED), Anxiety (ED) Patient Language: Macedonian Prescriptions: No Action No Home Medications Follow-up/Referrals: UNKNOWN,DOCTOR [Primary Care Provider] Time of Disposition: 09:03
--- NOTE | 2024-12-13 07:55 | ECG_ITS ---
Test Date: 2024-12-13 08:01:21 Measurements Intervals [place] Rate: 65 P: 73 ND: 142 QRS: 43 QRSD: 94 T: 69 QT: 375 QTc: 390 Interpretive Statements SINUS RHYTHM INCOMPLETE RIGHT BUNDLE BRANCH BLOCK [90+ ms QRS DURATION, TERMINAL R IN V1/V2, 40+ ms S IN I/aVL/V4/V5/V6] BORDERLINE ECG Compared to ECG 10/10/2024 04:32:54 NO CHANGE Electronically Signed On 12-13-2024 16:34:55 CDT by Paco Anderson M.D.
--- OUTSIDE RECORDS SUMMARY | 2024-12-13 07:58 | XMS_ITS | Clinical Summary ---
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
[2024-12-13 08:08] LABS: Hematocrit 35.8 % (35.0-49.0); Hemoglobin 11.8 g/dL (12.0-15.0); Immature Granulocyte Percent A 0.4 % (0.0-0.0); Lymphocytes Absolute Auto 1.08 K/mm3 (1.10-4.50); Mean Corpuscular HGB Conc 33.0 g/dL (32-36); Mean Corpuscular Hemoglobin 34.2 pg (27.0-31.0); Mean Corpuscular Volume 103.8 fL (78.0-102.0); Nucleated Red Blood Cells Absolute Auto 0.00 K/mm3 (0.00-0.00); Nucleated Red Blood Cells Perc 0.0 % (0-0.0); Platelet Count Result 218 K/mm3 (150-420); Red Blood Count 3.45 M/mm3 (4.20-5.40); White Blood Count 5.4 K/mm3 (4.8-10.8)
[2024-12-13 08:17] LABS: Add Urine Microscopic? YES; Appearance Urine Clear (Clear); Glucose Urine UA Negative (Negative); Leukocyte Esterase Ur 1+ LEU/UL (Negative); Nitrate Urine Negative (Negative); Specific Grav Ur 1.020 (1.010-1.020)
[2024-12-13 08:20] LABS: Alanine Aminotransferase 12 U/L (6-35); Albumin Level 3.9 g/dL (3.5-5.1); Alkaline Phosphatase 93 U/L (38-126); Anion Gap 8 mmol/L (4-12); Aspartate Amino Transferase 23 U/L (14-36); Bilirubin,Total 0.6 mg/dL (0.2-1.3); Blood Urea Nitrogen 12 mg/dL (7-17); Calcium 8.9 mg/dL (8.4-10.2); Carbon Dioxide 26 mmol/L (22-30); Chloride 108 mmol/L (98-107); Creatine Kinase 89 U/L (30-135); Estimated CRCL calculation 48 ml/min; Estimated Glomerular Filt Rate > 60; Glucose 77 mg/dL (65-110); Lipase 79 U/L (23-300); Magnesium 1.7 mg/dL (1.6-2.3); Osmolality Calculated 292 mOsm/kg (285-295); Potassium 3.4 mmol/L (3.4-5.0); Sodium 142 mmol/L (137-145); Total Protein 6.3 g/dL (6.3-8.2)
[2024-12-13] MEDS: LACTATED RINGERS 500 ML 999 ML IV CONT (08:24)
[2024-12-13 08:26] LABS: INR 1.0; Prothrombin Time 10.9 Seconds (9.50-12.1)
[2024-12-13 08:29] LABS: NT Pro B Type Natriuretic Pept 312 pg/mL (19.9-100)
[2024-12-13 08:32] LABS: Troponin I < 0.012 ng/mL (0.000-0.034)
--- OUTSIDE RECORDS SUMMARY | 2024-12-13 08:36 | XMS_ITS | Clinical Summary ---
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
[2024-12-13 08:51] LABS: Thyroid Stimulating Hormone 1.000 uIU/mL (0.465-4.680)
--- NOTE | 2024-12-15 18:14 | PC.NURSE ---
PRELIMINARY URINE CULTURE GRAM NEGATIVE BACILLI ISOLATED PER DR NAILS NO FURTHER ORDERS NEEDED
--- NOTE | 2024-12-17 15:04 | PC.NURSE ---
FINAL URINE CULTURE REPORT; KLEBSIELLA PNEUMONIAE, PRESCRIPTION FOR CIPRO 250MG 1 TABLET TWICE DAILY, #10, 5 DAYS, 0 REFILL CALLED TO [facility] IN [place] PER PATIENT REQUEST. PATIENT IS AWARE THEY ARE CLOSED TODAY BUT REFUSES ANY OTHER PHARMACY.
--- NOTE | 2024-12-18 12:40 | PC.NURSE ---
FINAL URINE CULTURE REPORT: ORGANISM KLEBSIELLA PNEUMONIAE AND ESCHERICHIA COLI. RESULTS SHOWN TO Sandor DEL VALLE MD. NO ANTIBIOTICS SHOWN IN CHART. RN CALLS [facility] IN [place] AND PHARMACY STATES THEY RECEIVED CIPROFLOXACIN 250 MG BID FOR 5 DAYS OVER THE WEEKEND. STATES ANTIBIOTIC IS APPROPRIATE FOR TREATMENT MOVING FORWARD. NO CHANGE IN TREATMENT AT THIS TIME.
== END 2024-12-13 09:24 | disposition home or self-care (01) ==
PROVIDERS: Emergency Provider Internal Medicine Critical Care Medicine
DX: R55 Syncope and collapse (principal); N39.0 Urinary tract infection, site not specified; B96.1 Klebsiella pneumoniae [K. pneumoniae] as the cause of diseases classified elsewhere; F41.9 Anxiety disorder, unspecified; I71.21 Aneurysm of the ascending aorta, without rupture; Z85.41 Personal history of malignant neoplasm of cervix uteri
CPT/HCPCS: 36415; 80053; 81001; 82550; 83605; 83690; 83735; 83880; 84443; 84484; 85025; 85610; 87086; 87186; 93005; 99284; J7120